=== PATIENT | male | born 1945 | race Caucasian/White ===

== ENCOUNTER 2021-02-14 10:36 | Inpatient (IN) | payer BC, MEDICAID ==
[~2021-02-14] VITALS: Ht 180.3 cm; Wt 113.6 kg
[~2021-02-14 10:36] MED LIST: NO HOME MEDS
[2021-02-14] MEDS ORDERED: cefepime 2g/NS 100ml ADVANTAGE 100 ML IV ONE (12:20)
--- NOTE | 2021-02-14 13:03 | NUR ---
Patient given water to drink.
[2021-02-14 13:08] LABS: BASOPHILS % (AUTO) 0.6 % (0-1); EOSINOPHILS # (AUTO) 0.1 X10'3 (0-0.9); HEMATOCRIT 40.7 % (42.0-52.0); HEMOGLOBIN 14.1 g/dl (14.0-17.9); LYMPHOCYTES # (AUTO) 1.2 X10'3 (1.1-4.8); LYMPHOCYTES % (AUTO) 14.7 % (21-51); MEAN CORPUSCULAR HEMOGLOBIN 33.1 PG (27.0-31.0); MEAN CORPUSCULAR HGB CONC 34.5 g/dL (33.0-36.5); MEAN CORPUSCULAR VOLUME 95.9 FL (78-98); MEAN PLATELET VOLUME 7.9 FL (7.4-10.4); MONOCYTES # (AUTO) 0.6 X10'3 (0-0.9); MONOCYTES % (AUTO) 7.3 % (2-12); NEUTROPHILS # (AUTO) 6.1 X10'3 (1.8-7.7); NEUTROPHILS % (AUTO) 76.4 % (42-75); PLATELET COUNT 421 X10'3 (140-440); RED BLOOD COUNT 4.24 X10'6 (4.70-6.10); RED CELL DISTRIBUTION WIDTH 13.5 % (11.5-14.5)
[2021-02-14 13:23] LABS: ALANINE AMINOTRANSFERASE 43 U/L (12-78); ALBUMIN/GLOBULIN RATIO 0.6 (1.1-1.5); ALKALINE PHOSPHATASE 72 IU/L (46-116); ANION GAP 9 (8-16); ASPARTATE AMINO TRANSFERASE 26 U/L (10-37); BILIRUBIN,TOTAL 0.2 MG/DL (0.1-1.0); BLOOD UREA NITROGEN 16 MG/DL (7-18); BUN/CREATININE RATIO 10.8 (5.4-32.0); C-REACTIVE PROTEIN 1.51 MG/DL (0.0-0.5); CALCIUM 8.6 MG/DL (8.5-10.1); CHLORIDE 102 MMOL/L (99-107); CREATININE 1.48 MG/DL (0.60-1.10); GLUCOSE 112 MG/DL (70-104); MAGNESIUM 2.2 MG/DL (1.5-2.4); POTASSIUM 4.4 MMOL/L (3.5-5.1); SODIUM 136 MMOL/L (135-145); TOTAL CARBON DIOXIDE 25.5 MMOL/L (24-32); TOTAL PROTEIN 8.1 G/DL (6.4-8.2); eGFR 46 ML/MIN
[2021-02-14] MEDS ORDERED: magnesium Cl slow-release 64mg tablet PO PRN (14:30)
[2021-02-14] MEDS ORDERED: ondansetron/PF 4mg/2ml inj IV PRN (14:30)
[2021-02-14] MEDS ORDERED: bisacodyl 10mg suppository rectal RC PRN (14:30)
[2021-02-14] MEDS ORDERED: magnesium 2GM in 50ml NS 50 ML IV PRN (14:30)
[2021-02-14] MEDS ORDERED: ondansetron 4mg rapidly disintigrating tab PO PRN (14:30)
[2021-02-14] MEDS ORDERED: potassium CL 10mEq/100ml bag 100 ML IV PRN (14:30)
[2021-02-14] MEDS ORDERED: acetaminophen 325mg tablet PO PRN ×2 (14:30)
[2021-02-14] MEDS ORDERED: magnesium 4gm in 100ml NS 100 ML IV PRN (14:30)
[2021-02-14] MEDS ORDERED: magnesium hydroxide 30ml (MOM) UD suspension PO PRN (14:30)
[2021-02-14] MEDS ORDERED: mag hydrox/Alum hydrox/simeth 30ml oral suspension PO PRN (14:30)
[2021-02-14] MEDS ORDERED: potassium Cl 20 mEq SR tablet PO PRN ×2 (14:30)
[2021-02-14] MEDS ORDERED: HYDROcodone/acetaminophen 5mg/325mg tablet PO PRN (14:30)
[2021-02-14] MEDS ORDERED: HYDROcodone/acetaminophen 10/325mg tab PO PRN (14:30)
[2021-02-14] MEDS ORDERED: CLIN300C56 PO (14:37)
[2021-02-14] MEDS ORDERED: CLOP75TA34 PO (14:37)
[2021-02-14] MEDS ORDERED: GABA-530 PO (14:37)
[2021-02-14] MEDS ORDERED: CARV3.123 PO (14:37)
[2021-02-14] MEDS ORDERED: POTA-188 PO (14:37)
[2021-02-14] MEDS ORDERED: ASPI-1265 PO (14:37)
[2021-02-14] MEDS ORDERED: OMEP40CA21 PO (14:37)
[2021-02-14] MEDS ORDERED: PANT40TA54 PO (14:37)
[2021-02-14] MEDS ORDERED: FURO20TA4 PO (14:37)
[2021-02-14] MEDS ORDERED: ATOR40TA72 PO (14:37)
[2021-02-14] MEDS ORDERED: ACET-3068 PO (14:57)
[2021-02-14] MEDS ORDERED: vancomycin/NS 1 GM ADD-VANTAGE 250 ML IV SCH (15:00)
--- NOTE | 2021-02-14 15:35 | NUR ---
Report received from ED RN, Khai
[2021-02-14 15:50] VITALS: BP 139/84
[2021-02-14] MEDS: normal saline 1000ml 1,000 ML IV SCH (16:19)
--- NOTE | 2021-02-14 18:10 | NUR ---
Problems reprioritized. Patient report given, questions answered & plan of care reviewed with ZAY Alanis.
[2021-02-14 20:00] VITALS: BP 141/60
[2021-02-14] MEDS: K and/or MAG REPLACEMENT MC SCH (20:00)
[2021-02-14] MEDS ORDERED: enoxaparin 40mg/0.4ml syringe SQ SCH (20:00)
[2021-02-14] MEDS: docusate sod 100mg capsule PO SCH (20:16)
[2021-02-14 20:20] VITALS: BP 119/58
[2021-02-14] MEDS: carVEDilol 3.125mg tablet PO SCH (20:20)
[2021-02-14] MEDS ORDERED: temazepam 15mg capsule PO PRN (21:00)
[2021-02-15] VITALS: BP 145/84
[2021-02-15] MEDS: normal saline 1000ml 1,000 ML IV SCH ×2 (00:30→10:30)
[2021-02-15] MEDS: cefepime 1GM/NS ADD-VANTAGE 100 ML IV SCH ×2 (00:48→10:36)
[2021-02-15] MEDS ORDERED: vancomycin/NS 1 GM ADD-VANTAGE 250 ML IV SCH (01:00)
[2021-02-15 06:05] LABS: BASOPHILS # (AUTO) 0.1 X10'3 (0-0.2); BASOPHILS % (AUTO) 0.9 % (0-1); EOSINOPHILS # (AUTO) 0.2 X10'3 (0-0.9); EOSINOPHILS % (AUTO) 2.2 % (0-6); HEMATOCRIT 37.3 % (42.0-52.0); HEMOGLOBIN 12.7 g/dl (14.0-17.9); LYMPHOCYTES # (AUTO) 1.7 X10'3 (1.1-4.8); LYMPHOCYTES % (AUTO) 24.2 % (21-51); MEAN CORPUSCULAR HEMOGLOBIN 32.5 PG (27.0-31.0); MEAN CORPUSCULAR HGB CONC 33.9 g/dL (33.0-36.5); MEAN CORPUSCULAR VOLUME 95.9 FL (78-98); MEAN PLATELET VOLUME 7.7 FL (7.4-10.4); MONOCYTES # (AUTO) 0.6 X10'3 (0-0.9); NEUTROPHILS # (AUTO) 4.5 X10'3 (1.8-7.7); NEUTROPHILS % (AUTO) 64.7 % (42-75); PLATELET COUNT 338 X10'3 (140-440); RED BLOOD COUNT 3.89 X10'6 (4.70-6.10); RED CELL DISTRIBUTION WIDTH 13.3 % (11.5-14.5)
[2021-02-15 06:12] LABS: ALANINE AMINOTRANSFERASE 33 U/L (12-78); ALBUMIN 2.5 G/DL (3.4-5.0); ALBUMIN/GLOBULIN RATIO 0.5 (1.1-1.5); ALKALINE PHOSPHATASE 61 IU/L (46-116); ANION GAP 6 (8-16); ASPARTATE AMINO TRANSFERASE 22 U/L (10-37); BILIRUBIN,TOTAL 0.2 MG/DL (0.1-1.0); BLOOD UREA NITROGEN 17 MG/DL (7-18); BUN/CREATININE RATIO 12.1 (5.4-32.0); CALCIUM 8.2 MG/DL (8.5-10.1); CHLORIDE 106 MMOL/L (99-107); CREATININE 1.41 MG/DL (0.60-1.10); GLUCOSE 113 MG/DL (70-104); POTASSIUM 4.1 MMOL/L (3.5-5.1); SODIUM 138 MMOL/L (135-145); TOTAL CARBON DIOXIDE 25.9 MMOL/L (24-32); TOTAL PROTEIN 7.1 G/DL (6.4-8.2); eGFR 49 ML/MIN
[2021-02-15 07:00] VITALS: BP 135/78
[2021-02-15] MEDS ORDERED: pantoprazole 40mg Tablet.DR PO SCH (08:00)
[2021-02-15] MEDS ORDERED: aspirin 81mg tab.chew PO SCH (08:00)
[2021-02-15] MEDS ORDERED: gabapentin 100mg capsule PO SCH (08:00)
[2021-02-15] MEDS ORDERED: atorvastatin 20mg tablet PO SCH (08:00)
[2021-02-15] MEDS ORDERED: clopidogrel 75mg tablet PO SCH (08:00)
[2021-02-15] MEDS ORDERED: furosemide 20MG tablet PO SCH (08:00)
[2021-02-15] MEDS ORDERED: potassium chloride 10mEq ER tablet PO SCH (08:00)
[2021-02-15] MEDS: K and/or MAG REPLACEMENT MC SCH (08:00)
[2021-02-15] MEDS: docusate sod 100mg capsule PO SCH (09:34)
[2021-02-15] MEDS: carVEDilol 3.125mg tablet PO SCH (09:34)
[2021-02-15] MEDS ORDERED: SULF1TAB49 PO (10:35)
[2021-02-15] MEDS ORDERED: CEPH250T PO (10:35)
[2021-02-15 11:56] VITALS: BP 124/47
--- NOTE | 2021-02-15 12:30 | NUR ---
Patient stable and appropriate for discharge home. IV removed, All belongings taken from room. New prescriptions e-scripted to [facility] in [place] as preferred by patient. All discharge instructions and education given and reviewed with patient including next due dose time of all new and continued medications. All questions answered. Patient DC'd with wound care supplies.
[2021-02-15] MEDS ORDERED: cefepime 1GM in D5W 50mL 50 ML IV SCH (16:00)
[2021-02-16] MEDS ORDERED: VANCOMYCIN LEVEL IV ONE (00:30)
== END 2021-02-15 12:28 | disposition home health service (06) | DRG 603 ==
LOC: ER 10:37 → SUR 3N 14:29 → ER 16:30
PROVIDERS: ADMIT Family Medicine; ATTEND Family Medicine
DX: L03.116 Cellulitis of left lower limb (principal); E78.5 Hyperlipidemia, unspecified; N18.30 Chronic kidney disease, stage 3 unspecified; K21.9 Gastro-esophageal reflux disease without esophagitis; I12.9 Hypertensive chronic kidney disease with stage 1 through stage 4 chronic kidney disease, or unspecified chronic kidney disease; F17.210 Nicotine dependence, cigarettes, uncomplicated; S90.935A Unspecified superficial injury of left lesser toe(s), initial encounter; X58.XXXA Exposure to other specified factors, initial encounter; I25.2 Old myocardial infarction; Z79.02 Long term (current) use of antithrombotics/antiplatelets; Z79.899 Other long term (current) drug therapy; Z91.14 Patient's other noncompliance with medication regimen; Z91.19 Patient's noncompliance with other medical treatment and regimen; Z82.49 Family history of ischemic heart disease and other diseases of the circulatory system; Z72.89 Other problems related to lifestyle; Y93.89 Activity, other specified; Y92.89 Other specified places as the place of occurrence of the external cause; Y99.8 Other external cause status
CPT/HCPCS: 36415; 73630; 80053; 83605; 83735; 84145; 85025; 85651; 86140; 87040; 87081; 96365; 96366; 97116; 97161; 97530; 99285; G0378; J0692; J1650; J3370; J7030

== ENCOUNTER 2021-11-03 12:11 | Emergency (ER) | payer BC, MEDICAID ==
[~2021-11-03] VITALS: Ht 182.9 cm; Wt 113.6 kg
[~2021-11-03 12:11] MED LIST changes: +ACET-3068 PO; +ASPI-1265 PO; +ATOR40TA72 PO; +CARV3.123 PO; +CEPH250T PO; +CLOP75TA34 PO; +FURO20TA4 PO; +GABA-530 PO; -NO HOME MEDS; +OMEP40CA21 PO; +PANT40TA54 PO; +POTA-188 PO
[2021-11-03 15:10] LABS: BASOPHILS % (AUTO) 0.4 % (0-1); LYMPHOCYTES # (AUTO) 1.2 X10'3 (1.1-4.8); MEAN PLATELET VOLUME 7.9 FL (7.4-10.4); MONOCYTES # (AUTO) 0.7 X10'3 (0-0.9)
[2021-11-03 15:12] LABS: EOSINOPHILS % (AUTO) 0.2 % (0-6); HEMATOCRIT 43.4 % (42.0-52.0); HEMOGLOBIN 14.6 g/dl (14.0-17.9); LYMPHOCYTES % (AUTO) 9.7 % (21-51); MEAN CORPUSCULAR HGB CONC 33.8 g/dL (33.0-36.5); MEAN CORPUSCULAR VOLUME 94.9 FL (78-98); MONOCYTES % (AUTO) 6.1 % (2-12); NEUTROPHILS % (AUTO) 83.6 % (42-75); PLATELET COUNT 305 X10'3 (140-440); RED BLOOD COUNT 4.57 X10'6 (4.70-6.10); RED CELL DISTRIBUTION WIDTH 13.2 % (11.5-14.5)
[2021-11-03 15:25] LABS: ALANINE AMINOTRANSFERASE 19 U/L (12-78); ALBUMIN 3.7 G/DL (3.4-5.0); ALBUMIN/GLOBULIN RATIO 0.8 (1.1-1.5); ALKALINE PHOSPHATASE 94 IU/L (46-116); ANION GAP 8 (8-16); ASPARTATE AMINO TRANSFERASE 16 U/L (10-37); BILIRUBIN,TOTAL 0.3 MG/DL (0.1-1.0); BLOOD UREA NITROGEN 12 MG/DL (7-18); CHLORIDE 102 MMOL/L (99-107); GLUCOSE 113 MG/DL (70-104); LIPASE 77 U/L (73-393); POTASSIUM 4.1 MMOL/L (3.5-5.1); SODIUM 136 MMOL/L (135-145); TOTAL CARBON DIOXIDE 25.9 MMOL/L (24-32); TOTAL PROTEIN 8.2 G/DL (6.4-8.2); eGFR 59 ML/MIN
[2021-11-03] MEDS ORDERED: piperacillin/tazo 3.375gm/50ml 50 ML IV ONE (16:10)
[2021-11-03] MEDS ORDERED: normal saline 1000ML IV soln IVB ONE (16:10)
[2021-11-03] MEDS ORDERED: ondansetron/PF 4mg/2ml inj IV ONE (16:10)
[2021-11-03] MEDS ORDERED: morphine 4 MG/ML inj SYRINge IV ONE (16:10)
[2021-11-03 16:30] LABS: CLARITY,URINE CLEAR (Clear); COLOR,URINE YELLOW (Yellow); GLUCOSE, URINE NEGATIVE (Neg); KETONES,URINE NEGATIVE (Neg); LEUKOCYTE ESTERASE ,URINE NEGATIVE (Neg); NITRITES, URINE NEGATIVE (Neg); OCCULT BLOOD,URINE MODERATE (Neg); PH,URINE 6.5 (4.8-8.0); PROTEIN,URINE NEGATIVE (Neg); UROBILINOGEN,URINE 0.2 E.U/dL (0.2-1.0)
[2021-11-03 16:38] LABS: UA COLLECTION TYPE OTHER
[2021-11-03 16:40] LABS: WBC,URINE 0-4 /HPF (0-4)
[2021-11-03 16:41] LABS: BACTERIA,URINE NONE SEEN /HPF (Neg); MUCUS STRANDS FEW /LPF (Neg); SQUAMOUS EPITHELIAL CELL,UR MODERATE /LPF (FEW)
[2021-11-03] MEDS ORDERED: AMOX-117 PO (18:42)
[2021-11-03 18:54] VITALS: BP 149/73
== END 2021-11-03 19:00 | disposition home or self-care (01) ==
LOC: ER 12:11
DX: K80.20 Calculus of gallbladder without cholecystitis without obstruction (principal); N17.9 Acute kidney failure, unspecified; I11.9 Hypertensive heart disease without heart failure; F17.200 Nicotine dependence, unspecified, uncomplicated; Z79.899 Other long term (current) drug therapy; Z79.1 Long term (current) use of non-steroidal anti-inflammatories (NSAID); Z79.82 Long term (current) use of aspirin
CPT/HCPCS: 36415; 76700; 80053; 80320; 81001; 83605; 83690; 85025; 87040; 96365; 96375; 99284; J2270; J2405; J2543; J7030; 96374

== ENCOUNTER 2022-08-24 13:50 | Emergency (ER) | payer OTHER, MEDICAID ==
[~2022-08-24] VITALS: Ht 177.8 cm; Wt 140.0 kg
[~2022-08-24 13:50] MED LIST changes: -ACET-3068 PO; -ASPI-1265 PO; -ATOR40TA72 PO; -CARV3.123 PO; -CEPH250T PO; +FOLI1TAB27 PO; -FURO20TA4 PO; -GABA-530 PO; +LISI10TA27 PO; +METF-1203 PO; +MULT-25 PO; -OMEP40CA21 PO; -POTA-188 PO; +THIA50TA10 PO
[2022-08-24 14:01] VITALS: BP 156/98
[2022-08-24] MEDS ORDERED: piperacillin/tazo 3.375gm/50ml 50 ML IV ONE (15:00)
== END 2022-08-24 15:58 | disposition home or self-care (01) ==
LOC: ER 13:51
DX: T82.898A Other specified complication of vascular prosthetic devices, implants and grafts, initial encounter (principal); I10 Essential (primary) hypertension; E78.00 Pure hypercholesterolemia, unspecified; Z79.899 Other long term (current) drug therapy
CPT/HCPCS: 96365; 99284; A6258; J2543

== ENCOUNTER 2022-08-29 09:45 | Emergency (ER) | payer OTHER, MEDICAID ==
[~2022-08-29] VITALS: Ht 180.3 cm; Wt 127.3 kg
[2022-08-29 09:48] VITALS: BP 183/87
== END 2022-08-29 12:14 | disposition home or self-care (01) ==
LOC: ER 09:46
DX: T82.9XXA Unspecified complication of cardiac and vascular prosthetic device, implant and graft, initial encounter (principal); E78.00 Pure hypercholesterolemia, unspecified; I12.0 Hypertensive chronic kidney disease with stage 5 chronic kidney disease or end stage renal disease; N18.9 Chronic kidney disease, unspecified
CPT/HCPCS: 99281

== ENCOUNTER → 2022-08-31 | Day surgery (SDC) | payer OTHER, MEDICAID | END | disposition home or self-care (01) | LOC: SSTAY O 10:18 | PROVIDERS: ATTEND Internal Medicine | DX: E11.69 Type 2 diabetes mellitus with other specified complication (principal); M86.9 Osteomyelitis, unspecified; E11.22 Type 2 diabetes mellitus with diabetic chronic kidney disease; I12.9 Hypertensive chronic kidney disease with stage 1 through stage 4 chronic kidney disease, or unspecified chronic kidney disease; N18.9 Chronic kidney disease, unspecified; E78.00 Pure hypercholesterolemia, unspecified; I25.2 Old myocardial infarction; E11.40 Type 2 diabetes mellitus with diabetic neuropathy, unspecified; F17.210 Nicotine dependence, cigarettes, uncomplicated; Z72.89 Other problems related to lifestyle; Z79.01 Long term (current) use of anticoagulants; Z79.82 Long term (current) use of aspirin; Z79.899 Other long term (current) drug therapy; Z79.84 Long term (current) use of oral hypoglycemic drugs; Z82.49 Family history of ischemic heart disease and other diseases of the circulatory system | CPT/HCPCS: 36569; 36573; 76942 ==

== ENCOUNTER 2024-07-17 17:38 | Inpatient (IN) | payer MEDICARE, MEDICAID ==
[~2024-07-17] VITALS: Ht 182.9 cm; Wt 107.7 kg
[~2024-07-17 17:38] MED LIST changes: -METF-1203 PO
[2024-07-17 18:48] LABS: BASOPHILS # (AUTO) 0.1 X10'3 (0-0.2); BASOPHILS % (AUTO) 0.5 % (0-1); EOSINOPHILS # (AUTO) 0.2 X10'3 (0-0.9); EOSINOPHILS % (AUTO) 0.8 % (0-6); HEMATOCRIT 46.5 % (42.0-52.0); HEMOGLOBIN 15.4 g/dl (14.0-17.9); LYMPHOCYTES % (AUTO) 10.5 % (21-51); MEAN CORPUSCULAR HEMOGLOBIN 31.4 PG (27.0-31.0); MEAN CORPUSCULAR HGB CONC 33.2 g/dL (33.0-36.5); MEAN CORPUSCULAR VOLUME 94.6 FL (78-98); MEAN PLATELET VOLUME 9.2 FL (7.4-10.4); MONOCYTES # (AUTO) 1.1 X10'3 (0-0.9); MONOCYTES % (AUTO) 5.7 % (2-12); NEUTROPHILS # (AUTO) 15.6 X10'3 (1.8-7.7); NEUTROPHILS % (AUTO) 82.5 % (42-75); PLATELET COUNT 373 X10'3 (140-440); RED BLOOD COUNT 4.92 X10'6 (4.70-6.10); RED CELL DISTRIBUTION WIDTH 14.3 % (11.5-14.5); WHITE BLOOD COUNT 18.9 X10'3 (4.5-11.0)
[2024-07-17 19:03] LABS: ALANINE AMINOTRANSFERASE 31 U/L (12-78); ALBUMIN 3.9 G/DL (3.4-5.0); ALBUMIN/GLOBULIN RATIO 0.8 (1.1-1.5); ALKALINE PHOSPHATASE 92 IU/L (46-116); AMYLASE 59 U/L (25-115); ANION GAP 11 (8-16); ASPARTATE AMINO TRANSFERASE 25 U/L (10-37); BILIRUBIN,TOTAL 0.4 MG/DL (0.1-1.0); BLOOD UREA NITROGEN 27 MG/DL (7-18); BUN/CREATININE RATIO 13.6 (10.0-20.0); CALCIUM 9.1 MG/DL (8.5-10.1); CHLORIDE 104 MMOL/L (99-107); CREATININE 1.99 MG/DL (0.60-1.10); GLUCOSE 113 MG/DL (70-104); LIPASE 38 U/L (16-77); POTASSIUM 4.3 MMOL/L (3.5-5.1); SODIUM 138 MMOL/L (135-145); TOTAL CARBON DIOXIDE 22.8 MMOL/L (24-32); TOTAL PROTEIN 8.6 G/DL (6.4-8.2); eCRCL 34 ML/MIN; eGFR 33 ML/MIN
--- NOTE | 2024-07-17 19:41 | RADIOLOGY REPORT ---
EXAM: CT Abdomen and Pelvis Without Intravenous Contrast CLINICAL INDICATION: RLQ abd pain TECHNIQUE: Axial computed tomography images of the abdomen and pelvis without intravenous contrast. This CT exam was performed using one or more of the following dose reduction techniques: automated exposure control, adjustment of the mA and/or kV according to patient size, and/or use of iterative r econstruction technique. CONTRAST: COMPARISON: None FINDINGS: LUNG BASES: Unremarkable. No mass. No consolidation. ABDOMEN: LIVER: Unremarkable. GALLBLADDER AND BILE DUCTS: Unremarkable. No calcified stones. No ductal dilation. PANCREAS: Unremarkable. No ductal dilation. SPLEEN: Unremarkable. No splenomegaly. ADRENALS: Unremarkable. No mass. KIDNEYS AND URETERS: Right renal cyst. No obstructing stones. No hydronephrosis. STOMACH AND BOWEL: Constipation with suggestion of fecal impaction of the rectum. Colonic divertic ulosis without acute diverticulitis. PELVIS: APPENDIX: Fat stranding in the right lower abdominal quadrant. Appendix not clearly visualized. F inding may suggest colitis. However, acute appendicitis can not be entirely excluded. No bowel obstr uction or pneumoperitoneum. No abscess. BLADDER: Unremarkable. No stones. REPRODUCTIVE: Unremarkable as visualized. ABDOMEN and PELVIS: INTRAPERITONEAL SPACE: See above. BONES/JOINTS: No acute fracture. No dislocation. SOFT TISSUES: Unremarkable. VASCULATURE: Unremarkable. No abdominal aortic aneurysm. LYMPH NODES: Unremarkable. No enlarged lymph nodes. OTHER FINDINGS: . IMPRESSION: 1. Fat stranding in the right lower abdominal quadrant. Appendix not clearly visualized. Finding m ay suggest colitis. However, acute appendicitis can not be entirely excluded. No bowel obstruction o r pneumoperitoneum. No abscess. 2. Constipation with suggestion of fecal impaction of the rectum. 3. Colonic diverticulosis without acute diverticulitis.
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
--- NOTE | 2024-07-17 20:25 | ELECTROCARDIOGRAPH REPORT ---
[facility] Test Date: 2024-07-17 Test Time: 20:23:02 Pat Name: ЕЛЕНА PATHAK Department: [facility] Patient ID: [facility]-[id number] Room: Gender: M Threat Analyst: : 1945 Requested By: MAUREEN RAE Order Number: [id number] Reading MD: Dr. Gabino Conde Measurements Intervals [place] Rate: 110 P: 53 IN: 158 QRS: 62 QRSD: 94 T: 66 QT: 323 QTc: 438 Interpretive Statements Sinus tachycardia Probable left atrial enlargement Electronically Signed On 07-17-2024 21:43:[address] Gabino Conde Please click the below link to view image of tracing.
--- NOTE | 2024-07-17 21:15 | RADIOLOGY REPORT ---
CHEST RADIOGRAPH Indication: cough Technique: Single frontal view of the chest was obtained COMPARISON: None FINDINGS: Lines and Tubes: None Lungs: Clear Pleura: No effusion. No pneumothorax. Cardiomediastinal contours: Unremarkable Bones: Unremarkable IMPRESSION: 1. No acute disease.
[2024-07-17] MEDS: normal saline 1000ml 1,000 ML IV ONE ×2 (21:28→21:32)
[2024-07-17] MEDS: morphine 4 MG/ML inj SYRINge IV ONE (21:29)
[2024-07-17] MEDS: piperacillin/tazo 4.5gm/100ml 100 ML IV ONE (21:41)
[2024-07-17] MEDS: ondansetron/PF 4mg/2ml inj IV ONE (21:41)
[2024-07-17] MEDS ORDERED: ondansetron/PF 4mg/2ml inj IV PRN (22:00)
[2024-07-17] MEDS ORDERED: potassium Cl 20 mEq SR tablet PO PRN ×2 (22:00)
[2024-07-17] MEDS ORDERED: mag hydrox/Alum hydrox/simeth 30ml oral suspension PO PRN (22:00)
[2024-07-17] MEDS ORDERED: haloperidol lactate 5mg/ml inj IM PRN (22:00)
[2024-07-17] MEDS ORDERED: magnesium sulf-water 2g/50mL 50 ML IV PRN (22:00)
[2024-07-17] MEDS ORDERED: magnesium Cl slow-release 64mg tablet PO PRN (22:00)
[2024-07-17] MEDS ORDERED: magnesium hydroxide 30ml (MOM) UD suspension PO PRN (22:00)
[2024-07-17] MEDS ORDERED: acetaminophen 325mg tablet PO PRN ×2 (22:00)
[2024-07-17] MEDS ORDERED: potassium Cl 40MEQ/1/2NS 520ml 520 ML IV PRN (22:00)
[2024-07-17] MEDS ORDERED: dextrose 50%-water 50ml dispensing syringe IV PRN (22:00)
[2024-07-17] MEDS ORDERED: haloperidol 5mg tablet PO PRN (22:00)
[2024-07-17] MEDS ORDERED: magnesium sulf-water 4G/100mL 100 ML IV PRN (22:00)
[2024-07-17] MEDS ORDERED: LORazepam 2 mg/ml vial IV PRN (22:00)
[2024-07-17] MEDS ORDERED: morphine 2 MG/ML inj. syringe IV PRN (22:00)
[2024-07-17] MEDS ORDERED: ipratropium/albuterol 3ml nebule NEB PRN (22:15)
[2024-07-17 22:25] LABS: INR 1.1 INR; PROTHROMBIN TIME 11.5 SECONDS (9.0-12.0)
[2024-07-17 22:35] LABS: HEMOGLOBIN A1C 5.9 % (4.5-6.2)
[2024-07-17 22:39] LABS: BILIRUBIN,URINE NEGATIVE (Neg); CLARITY,URINE CLEAR (Clear); COLOR,URINE YELLOW (Yellow); GLUCOSE, URINE NEGATIVE (Neg); KETONES,URINE NEGATIVE (Neg); LEUKOCYTE ESTERASE ,URINE NEGATIVE (Neg); OCCULT BLOOD,URINE NEGATIVE (Neg); PROTEIN,URINE TRACE mg/dl (Neg); UROBILINOGEN,URINE 0.2 E.U/dL (0.2-1.0)
[2024-07-17 22:46] LABS: ETHANOL < 10 MG/DL (<10); MAGNESIUM 1.8 MG/DL (1.5-2.4); PHOSPHORUS 2.1 MG/DL (2.3-4.5); PRO BRAIN NATRIURETIC PEPTIDE 306 PG/ML (0-450)
[2024-07-17 22:46] LABS: URINE AMPHETAMINE SCREEN POSITIVE (Neg); URINE BARBITUATE SCREEN NEGATIVE (Neg); URINE BENZODIAZEPINES SCREEN NEGATIVE (Neg); URINE CANNABINOID SCREEN NEGATIVE (Neg); URINE COCAINE SCREEN NEGATIVE (Neg); URINE METHADONE SCREEN NEGATIVE (Neg); URINE OPIATE SCREEN NEGATIVE (Neg); URINE PHENCYCLIDINE SCREEN NEGATIVE (Neg)
[2024-07-17] MEDS ORDERED: METF-1203 PO (22:53)
[2024-07-17] MEDS ORDERED: LEVO25TA7 PO (22:53)
[2024-07-17] MEDS ORDERED: TIRZ5PEN (22:53)
[2024-07-17] MEDS ORDERED: ATOR40TA72 PO (22:53)
[2024-07-17] MEDS ORDERED: CLOP75TA34 PO (22:54)
[2024-07-17] MEDS ORDERED: FOLI0.4T6 PO (22:55)
[2024-07-17] MEDS ORDERED: LISI20TA28 PO (22:56)
[2024-07-17 23:00] LABS: NITRITES, URINE NEGATIVE (Neg); UA COLLECTION TYPE CLN CATCH MIDSTREAM
[2024-07-17 23:01] LABS: BACTERIA,URINE NONE SEEN /HPF (Neg); RBC,URINE 0-2 /HPF (0-2); SQUAMOUS EPITHELIAL CELL,UR FEW /LPF (FEW); WBC,URINE NONE SEEN /HPF (0-4)
[2024-07-17 23:02] LABS: FINE GRANULAR CAST 0-3 /LPF (NEGATIVE)
[2024-07-17] MEDS: ipratropium/albuterol 3ml nebule NEB SCH (23:03)
[2024-07-17 23:06] VITALS: PULSE 108; RESP 18; O2SAT 93
[2024-07-17 23:08] VITALS: PULSE 107; RESP 18
[2024-07-17] MEDS: folic acid 1mg/0.2ml inj IV SCH (23:27)
[2024-07-17] MEDS: folic acid 1mg/0.2ml inj IV ONE (23:27)
[2024-07-18] VITALS (31 sets, daily range): BP systolic 130–168; BP diastolic 54–89; PULSE 58–96; RESP 14–39; TEMP 97.3–100.7; O2SAT 92–97
[2024-07-18] MEDS: diatr meglu/diatrizoate 30ml oral sol.-(3 dose) bottle PO SCH (00:51)
[2024-07-18] MEDS: normal saline 1000ml 1,000 ML IV SCH (01:18)
[2024-07-18] MEDS: normal saline 1000ML IV soln IVB ONE (01:18)
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
[2024-07-18] MEDS: piperacillin/tazo 4.5gm/100ml 100 ML IV SCH (04:01)
[2024-07-18] MEDS: piperacillin/tazo 4.5gm/100ml 100 ML IV ONE (04:02)
[2024-07-18 04:41] LABS: BASOPHILS % (AUTO) 0.2 % (0-1); EOSINOPHILS % (AUTO) 0 % (0-6); HEMATOCRIT 41.6 % (42.0-52.0); HEMOGLOBIN 13.5 g/dl (14.0-17.9); LYMPHOCYTES # (AUTO) 1.4 X10'3 (1.1-4.8); LYMPHOCYTES % (AUTO) 6.5 % (21-51); MEAN CORPUSCULAR HEMOGLOBIN 30.7 PG (27.0-31.0); MEAN CORPUSCULAR HGB CONC 32.5 g/dL (33.0-36.5); MEAN CORPUSCULAR VOLUME 94.5 FL (78-98); MEAN PLATELET VOLUME 8.6 FL (7.4-10.4); MONOCYTES # (AUTO) 1.1 X10'3 (0-0.9); MONOCYTES % (AUTO) 5.3 % (2-12); NEUTROPHILS # (AUTO) 19.2 X10'3 (1.8-7.7); PLATELET COUNT 285 X10'3 (140-440); RED CELL DISTRIBUTION WIDTH 14.3 % (11.5-14.5); WHITE BLOOD COUNT 21.8 X10'3 (4.5-11.0)
[2024-07-18 05:09] LABS: ALANINE AMINOTRANSFERASE 23 U/L (12-78); ALBUMIN 2.9 G/DL (3.4-5.0); ALBUMIN/GLOBULIN RATIO 0.7 (1.1-1.5); ALKALINE PHOSPHATASE 70 IU/L (46-116); ANION GAP 8 (8-16); ASPARTATE AMINO TRANSFERASE 18 U/L (10-37); BILIRUBIN,TOTAL 0.9 MG/DL (0.1-1.0); BLOOD UREA NITROGEN 28 MG/DL (7-18); BUN/CREATININE RATIO 13.2 (10.0-20.0); CALCIUM 8.4 MG/DL (8.5-10.1); CHLORIDE 108 MMOL/L (99-107); CHOL/HDL RATIO 2.6 (0.00-4.99); CHOLESTEROL 116 MG/DL (0-200); CREATININE 2.12 MG/DL (0.60-1.10); GLUCOSE 112 MG/DL (70-104); HDL CHOLESTEROL 44 MG/DL (35-60); LDL CHOLESTEROL 64 MG/DL (50-100); MAGNESIUM 1.8 MG/DL (1.5-2.4); PHOSPHORUS 2.8 MG/DL (2.3-4.5); POTASSIUM 5.1 MMOL/L (3.5-5.1); SODIUM 140 MMOL/L (135-145); THYROID STIMULATING HORMONE 1.91 ulU/ml (0.34-4.50); TOTAL CARBON DIOXIDE 23.8 MMOL/L (24-32); TOTAL PROTEIN 6.8 G/DL (6.4-8.2); TRIGLYCERIDES 58 MG/DL (20-135); eCRCL 32 ML/MIN; eGFR 30 ML/MIN
[2024-07-18] MEDS ORDERED: iohexol 300mg/ml 100ml inj. ONE (07:37)
[2024-07-18] MEDS: atorvastatin 20mg tablet PO SCH (07:40)
[2024-07-18] MEDS: docusate sod 100mg capsule PO SCH (07:41)
[2024-07-18] MEDS: levoTHYROXINE 25mcg tablet PO SCH (07:41)
[2024-07-18] MEDS: thiamine 100mg/ml 2ml inj. IV SCH (07:41)
[2024-07-18] MEDS: pantoprazole 40 MG vial IV SCH (07:42)
[2024-07-18] MEDS: nicotine 21mg patch - 24 hr TD SCH (07:43)
[2024-07-18] MEDS: heparin, porcine 5000 units/ml vial SQ SCH (08:00)
[2024-07-18] MEDS: metFORMIN 500mg tablet PO SCH (08:00)
[2024-07-18] MEDS: K and/or MAG REPLACEMENT MC SCH (08:00)
--- NOTE | 2024-07-18 09:55 | PROGRESS NOTE ---
Progress Note Dictate Providers to CC CC: DANII FORTE MD ~ Progress Note: Patient presents with right lower quadrant abdominal pain for a couple of days. No other symptoms. Denies any fevers, chills, nausea, vomiting, diarrhea or black or bloody stool Denies any history of colonoscopy Heavy smoker for his entire life CT scan shows some inflammatory process in the right lower quadrant and appendix not visualized per radiologist I can see what appears to be a normal caliber appendix with some inflammatory changes Local[facility] the [facility] Awaiting repeat CT scan with enteral and IV contrast Broad-spectrum antibiotics until then Either myself or Dr. Heriberto Shea we will see the patient this afternoon once imaging obtained Antibiotic Ordered?: Yes Objective Vitals Vital Signs Date Time Temp Pulse Resp B/P (MAP) Pulse Ox O2 Delivery O2 Flow Rate FiO2 07/18/24 08:00 16 95 Nasal Cannula 2.0 07/18/24 06:00 100.7 95 133/57 (82) 07/17/24 23:06 28 Lab Results: 07/18/24 0430 07/18/24 0430 Coagulation Studies Laboratory Tests Test 07/17/24 17:55 Prothrombin Time 11.5 SECONDS (9.0-12.0) INR International Normalized Ratio 1.1 INR Coagulation Comments DANII FORTE MD July 18, 2024 09:55
[2024-07-18] MEDS: morphine 2 MG/ML inj. syringe IV PRN (11:07)
--- NOTE | 2024-07-18 11:31 | RADIOLOGY REPORT ---
CLINICAL INFORMATION: Right lower quadrant pain. TECHNIQUE: Axial CT images of the abdomen and pelvis were obtained after the uneventful administrati on of 100 mL Omnipaque 300 IV contrast. Coronal and sagittal reformatted images were obtained, review ed, and stored. All CT scans at this medical facility are performed using dose modulation techniques as appropriate to a performed exam including the following: Automated exposure control was utilized; adjustment of the MA and/or KV according to patient size; and use of iterative reconstruction techn[employer] ue. CTDIvol = 37.02 mGy DLP = 2099.04 mGy-cm COMPARISON: CT CT ABDOMEN PELVIS on DOS: 07/17/24 FINDINGS: Lung bases: Dependent atelectasis in the lung bases. Respiratory motion artifact limits evaluation fo r subtle findings. Liver: Hepatic steatosis. Biliary: Gallbladder is contracted. No definite calcified gallstones visualized. Spleen: Unremarkable. Pancreas: Unremarkable. No inflammatory changes, ductal dilatation, or mass identified. Adrenal glands: Unremarkable. No mass. Kidneys: 2.6 cm cyst in the upper pole of the right kidney. No hydronephrosis. Aorta/Vascular: Dense atherosclerotic calcification. No abdominal aortic aneurysm. Retroperitoneum: No mass or lymphadenopathy. Bowel/mesentery: Mildly distended fluid-filled small bowel loops. There is somewhat gradual narrowing of the distal small bowel without focal transition point identified to suggest small bowel obstructi on. Appendix is visualized measures up to 1.2 cm in diameter, most prominent near the base of the nik endix, with mild adjacent stranding and trace fluid, possible appendicitis in the appropriate clinica l setting. Scattered small colonic diverticula without adjacent inflammatory changes to suggest diver ticulitis. Pelvic organs: Grossly unremarkable. Bladder: Moderate circumferential thickening of the bladder wall. Abdominal wall: Small bilateral fat containing inguinal hernias. Bones: No acute fracture or focal intraosseous lesion. IMPRESSION: 1. Thickened appendix, most prominent near the base of the appendix with adjacent stranding and trace fluid, suspected acute appendicitis in the appropriate clinical setting. 2. Dilated fluid-filled small bowel loops with somewhat gradual transition to nondilated distal small bowel, likely due to ileus or enteritis in the appropriate clinical setting. 3. Hepatic steatosis. 4. Contracted gallbladder with no definite calcified gallstones visualized. 5. Moderate circumferential thickening of the bladder wall. Correlate clinically to exclude cystitis . 6. Additional findings as described above. Critical findings Critical Result: Suspected acute appendicitis. Findings discussed with Dr. Tarango at 07/18/2024 01:26 PM CDT, and acknowledged receipt and understan ding of the findings. ..
[2024-07-18] MEDS ORDERED: BUPIVAcaine 2.5mg/ml inj 50ml vial (contains preservative) ONE (12:48)
[2024-07-18] MEDS ORDERED: labetalol 20mg/4ml (5mg/ml) syringe IV PRN (13:05)
[2024-07-18] MEDS ORDERED: fentaNYL/PF 50MCG/1 ML 2ML syringe IV PRN ×2 (13:05)
[2024-07-18] MEDS ORDERED: enalaprilat 1.25mg/ml 2ml vial IV PRN (13:05)
[2024-07-18] MEDS: ringers solution, lacted 1,000 ML IV SCH (13:05)
[2024-07-18] MEDS ORDERED: morphine 2 MG/ML inj. syringe IV PRN (13:05)
[2024-07-18] MEDS ORDERED: ondansetron/PF 4mg/2ml inj IV PRN ×2 (13:05→15:10)
[2024-07-18] MEDS ORDERED: morphine 4 MG/ML inj SYRINge IV PRN (13:05)
--- NOTE | 2024-07-18 13:20 | PROGRESS NOTE ---
Progress Note ID Providers to CC ~ Progress Note Progress Note: discussed procedure including risks/benefits/alernatives SIRIA FLORES MD July 18, 2024 13:20
[2024-07-18] MEDS ORDERED: fentaNYL/PF 50MCG/1 ML 2ML syringe ONE ×2 (13:27→14:22)
[2024-07-18] MEDS ORDERED: midazolam 1 mg/ML 2ml injection ONE (13:28)
[2024-07-18] MEDS ORDERED: acetaminophen 1,000mg/100ml IV 100 ML IV ONE (13:28)
[2024-07-18] MEDS ORDERED: ondansetron/PF 4mg/2ml inj ONE (13:29)
[2024-07-18] MEDS ORDERED: rocuronium 10mg/ml inj IV ONE (13:29)
[2024-07-18] MEDS ORDERED: propofol inj 20 ML IV ONE (13:29)
[2024-07-18] MEDS ORDERED: dexamethasone sod phosphate 4mg/ml inj. ONE (13:29)
[2024-07-18] MEDS ORDERED: LIDOcaine 1%/PF 5ML 10 MG/ML VIAL ONE (13:29)
[2024-07-18] MEDS ORDERED: sevoflurane 250ml liquid IH ONE (13:30)
[2024-07-18] MEDS: ipratropium/albuterol 3ml nebule IH ONE (13:33)
[2024-07-18] MEDS ORDERED: albumin (Human) 5% 250ml 250 ML IV ONE (14:09)
[2024-07-18] MEDS ORDERED: sugammadex 200mg/2ml injection IV ONE (14:59)
--- NOTE | 2024-07-18 15:08 | OPERATIVE REPORT ---
Operative Report Providers to CC ~ Date of Procedure: July 18, 2024 Pre-Operative Diagnosis: Acute appendicitis Post-Operative Diagnosis SAME as PRE-Op Procedure Performed celine potter Surgeon: rosalva mcneil Anesthesiologist: Oskar Che Type of Anesthesia: General Findings: appendicitis Estimated Blood Loss: min Specimen Removed: SIRIA Tristan MD July 18, 2024 15:08
[2024-07-18] MEDS ORDERED: HYDROmorphone inj. 0.5 MG/0.5 ML DISP.SYRIN IV PRN (15:10)
[2024-07-18] MEDS ORDERED: naloxone 0.4 mg/ml inj IV PRN (15:10)
[2024-07-18] MEDS: albuterol 2.5 MG/3 ML nebule NEB ONE (15:47)
--- NOTE | 2024-07-18 17:36 | OPERATIVE REPORT ---
DATE OF SURGERY: 07/18/2024 DICTATING PHYSICIAN: Heriberto Shea MD PREOPERATIVE DIAGNOSIS: Appendicitis. POSTOPERATIVE DIAGNOSIS: Appendicitis. PROCEDURE PERFORMED: Robotic appendectomy. SURGEON: Heriberto Shea MD HAM PUMPER: None. ANESTHESIA: General/Dr. Gomez. DRAINS: Iftikhar drain x 1. INDICATIONS FOR OPERATION: A 79-year-old male with medical problems, left abdominal pain, acute appendicitis, taken to surgery for robotic appendectomy. INTRAOPERATIVE FINDINGS: Acute appendicitis. DESCRIPTION OF PROCEDURE: The patient was placed supine on the operating table. After induction of general anesthesia and placement of endotracheal tube, the abdomen was prepped and draped. A supraumbilical incision was then made and a #12 port placed using open technique. Pneumoperitoneum was begun by insufflation of CO2. Additional ports were placed in the left lower quadrant and right lateral abdomen. Robot was then brought to the field. Camera port was docked. Camera placed, camera targeted. Additional ports were then docked and instruments placed. Abdomen was then explored. ____ right lower quadrant. Small bowel was mobilized. Cecum identified and appendix had been visualized. The appendiceal cecal junction was identified, isolated, ligated with Endo-DOMINIC stapler and divided as well as was appendiceal mesentery. Hemostasis found to be adequate. Robotic instruments were removed. Robot was undocked from the field. Appendix was placed in Endobag using laparoscope. Abdomen was copiously irrigated with large amount of antibiotic-containing solution. A #19 Iftikhar drain was placed through a port incision directly in the right upper quadrant. Hemostasis was found to be adequate. Ports were then removed under laparoscopic vision with no evidence of active bleeding. Final port and ____ appendix removed. Pneumoperitoneum was evacuated. Wounds were closed in layers. Skin was closed with clips. Dressing was applied. The patient was transferred to recovery in stable condition. Heriberto Shea MD TID: [id number] RECEIPT: [id number] BOLIVAR/DORIS/CANDE
--- NOTE | 2024-07-18 18:35 | PROGRESS NOTE- Residence ---
Progress Note - Resident Providers to CC Resident Creating Document: JASIEL TARANGO RES ~ Antibiotic Timeout Antibiotic Ordered?: Yes Subjective Patient was seen and examined at bedside. I found him to be confused with time person and place. However, he was still complaining of right lower quadrant pain. Noncontrast abdominal ultrasound was equivocal, followed by CT abdomen with oral and IV contrast which highly suggested acute appendicitis. Findings shared with Dr. Garcia, patient undergone robotic appendectomy by Dr. Shea. Objective Vital Signs Date Time Temp Pulse Resp B/P (MAP) Pulse Ox O2 Delivery O2 Flow Rate FiO2 07/18/24 17:58 90 18 159/89 (112) 95 Nasal Cannula 3.0 07/18/24 16:45 98.2 07/18/24 15:48 51 Elderly male, alert and oriented, appears to be in acute distress because of abdominal pain Respiratory: Mild diffuse wheezing heard Cardiac: S1-S2 heard, rhythm regular, no gallop/murmur Abdomen: non distended, obese, mild umbilical and right lower quadrant tenderness present, no organomegaly, bowel sounds - heard Extremities: no clubbing, no pedal edema, no deformities, peripheral pulses - 2+ Skin: warm and dry, no rash, no purpura Neuro: Confused and disoriented Result Diagram: 07/18/24 0430 07/18/24 0430 Coagulation Studies Laboratory Tests Test 07/17/24 17:55 Prothrombin Time 11.5 SECONDS (9.0-12.0) INR International Normalized Ratio 1.1 INR Coagulation Comments Advance Care Planning Advanced Care plannin - 30 Minutes Assessment Assessment A 79-year-old male with past medical history of hypertension, diabetes, CKD, PAD, presented to the ED with complaints of right lower quadrant abdominal pain. He is being admitted into the hospital for further evaluation and management. Plan Plan Right lower quadrant abdominal pain Acute appendicitis, evidenced by CT abdomen with oral contrast Sepsis present on admission, source appendicitis Lactic acid trended down; 2.0 now Continue IV fluids at 150 mL/hour. Patient received one dose of IV Zosyn in the ER. Continue IV Zosyn 4.5 g thrice daily. Undergone robotic appendectomy today - diet per surgeon Metabolic encephalopathy: Most likely due to ongoing infectious process Patient is disoriented x3 Treating underlying etiologies Keep him under telemetry CKD stage III Creatinine 2.12, EGFR 3o, BUN 28. Exposed to oral and IV contrast, creatinine expected to rise Aggressive IV hydration, continue NS at 50 mL/hour Monitor BMP Hypertension Patient has soft blood pressures currently. Holding his home lisinopril for now. Diabetes mellitus HB A1c 5.9. Hyperlipidemia Continue atorvastatin 40 mg daily. PAD Plavix held for potential surgery. Hypothyroidism Continue levothyroxine 25 mcg daily. Substance use disorder: UDS positive for methamphetamine Substance use navigator consult Social service consult Alcohol use disorder Started the patient on moderate alcohol withdrawal protocol. Nicotine use disorder Nicotine patch 21 mg daily. Code Status: Full code DVT Prophylaxis: Heparin Analgesia/Sedation: Acetaminophen Lines/Tubes: PIV GI Prophylaxis: Protonix Nutrition: NPO after midnight PT: Ordered Jasiel Tarango Internal Medicine Resident Date of Service: July 18, 2024 Billing Provider: KATI WILLIAM MD,JASIEL, RES July 18, 2024 18:35
[2024-07-19 02:00] VITALS: BP 147/70; PULSE 80; RESP 20; TEMP 98.2; O2SAT 95
[2024-07-19 06:00] VITALS: BP 133/54; PULSE 82; RESP 18; TEMP 97.2; O2SAT 94
[2024-07-19 06:53] LABS: BASOPHILS % (AUTO) 0.1 % (0-1); EOSINOPHILS % (AUTO) 0 % (0-6); HEMATOCRIT 39.7 % (42.0-52.0); HEMOGLOBIN 12.9 g/dl (14.0-17.9); LYMPHOCYTES # (AUTO) 0.6 X10'3 (1.1-4.8); LYMPHOCYTES % (AUTO) 3.1 % (21-51); MEAN CORPUSCULAR HEMOGLOBIN 31.1 PG (27.0-31.0); MEAN CORPUSCULAR HGB CONC 32.6 g/dL (33.0-36.5); MEAN CORPUSCULAR VOLUME 95.5 FL (78-98); MEAN PLATELET VOLUME 8.7 FL (7.4-10.4); MONOCYTES # (AUTO) 0.5 X10'3 (0-0.9); MONOCYTES % (AUTO) 2.6 % (2-12); NEUTROPHILS # (AUTO) 19.4 X10'3 (1.8-7.7); NEUTROPHILS % (AUTO) 94.2 % (42-75); PLATELET COUNT 213 X10'3 (140-440); RED BLOOD COUNT 4.15 X10'6 (4.70-6.10); RED CELL DISTRIBUTION WIDTH 14.4 % (11.5-14.5); WHITE BLOOD COUNT 20.6 X10'3 (4.5-11.0)
[2024-07-19 07:24] LABS: ALANINE AMINOTRANSFERASE 19 U/L (12-78); ALBUMIN 2.7 G/DL (3.4-5.0); ALBUMIN/GLOBULIN RATIO 0.7 (1.1-1.5); ALKALINE PHOSPHATASE 62 IU/L (46-116); ANION GAP 9 (8-16); ASPARTATE AMINO TRANSFERASE 20 U/L (10-37); BILIRUBIN,TOTAL 0.5 MG/DL (0.1-1.0); BLOOD UREA NITROGEN 21 MG/DL (7-18); BUN/CREATININE RATIO 11.4 (10.0-20.0); CALCIUM 8.4 MG/DL (8.5-10.1); CHLORIDE 108 MMOL/L (99-107); CREATININE 1.85 MG/DL (0.60-1.10); GLUCOSE 129 MG/DL (70-104); MAGNESIUM 2.1 MG/DL (1.5-2.4); POTASSIUM 4.7 MMOL/L (3.5-5.1); SODIUM 138 MMOL/L (135-145); TOTAL CARBON DIOXIDE 21.4 MMOL/L (24-32); TOTAL PROTEIN 6.8 G/DL (6.4-8.2); eCRCL 36 ML/MIN; eGFR 36 ML/MIN
[2024-07-19 08:45] VITALS: RESP 18; O2SAT 94
[2024-07-19 10:00] VITALS: BP 148/65; PULSE 84; RESP 18; TEMP 98.4; O2SAT 93
[2024-07-19] MEDS: HYDROcodone/acetaminophen 5mg/325mg tablet PO PRN (13:26)
--- NOTE | 2024-07-19 14:05 | PROGRESS NOTE- Residence ---
Progress Note - Resident Providers to CC Resident Creating Document: JASIEL TARANGO RES ~ Antibiotic Timeout Antibiotic Ordered?: Yes Subjective Patient was seen and examined at bedside. He underwent laparoscopic appendectomy yesterday, POD 1. He is feeling better, reports mild abdominal pain at surgical sites. No BM yet, able to pass gas. His confusion resolved. Objective Vital Signs Date Time Temp Pulse Resp B/P (MAP) Pulse Ox O2 Delivery O2 Flow Rate FiO2 07/19/24 10:00 98.4 84 18 148/65 (92) 93 Nasal Cannula 07/19/24 02:00 3.0 07/18/24 22:00 32 Elderly male, alert and oriented, appears to be in acute distress because of abdominal pain Respiratory: Mild diffuse wheezing heard Cardiac: S1-S2 heard, rhythm regular, no gallop/murmur Abdomen: non distended, obese, bowel sounds sluggish, dressing applied on surgical sites; dry and clean, no leakage or discharge Extremities: no clubbing, no pedal edema, no deformities, peripheral pulses - 2+ Skin: warm and dry, no rash, no purpura Neuro: Confused and disoriented Result Diagram: 07/19/24 0634 07/19/24 0634 Coagulation Studies Laboratory Tests Test 07/17/24 17:55 Prothrombin Time 11.5 SECONDS (9.0-12.0) INR International Normalized Ratio 1.1 INR Coagulation Comments Advance Care Planning Advanced Care plannin - 30 Minutes Assessment Assessment A 79-year-old male with past medical history of hypertension, diabetes, CKD, PAD, presented to the ED with complaints of right lower quadrant abdominal pain. He is being admitted into the hospital for further evaluation and management. Plan Plan Right lower quadrant abdominal pain Acute appendicitis, evidenced by CT abdomen with oral contrast Sepsis present on admission, source appendicitis Peritonitis ruled out Continue IV fluids at 150 mL/hour. Continue IV Zosyn 4.5 g thrice daily. Undergone robotic appendectomy today - POD#1 Dr. Shea follows the patient Metabolic encephalopathy: Resolved Most likely due to ongoing infectious process Patient is disoriented x3 Treating underlying etiologies Keep him under telemetry MONTY on CKD stage III: likely 2/2 renal tubular stasis Creatinine 1.87 improving IV hydration, continue NS at 50 mL/hour Monitor BMP Hypertension Patient has soft blood pressures currently. Holding his home lisinopril for now. Diabetes mellitus HB A1c 5.9. Hyperlipidemia Continue atorvastatin 40 mg daily. PAD Plavix held for potential surgery. Hypothyroidism Continue levothyroxine 25 mcg daily. Substance use disorder: UDS positive for methamphetamine Substance use navigator consult Social service consult Alcohol use disorder Started the patient on moderate alcohol withdrawal protocol. Nicotine use disorder Nicotine patch 21 mg daily. Code Status: Full code DVT Prophylaxis: Heparin Analgesia/Sedation: Acetaminophen Lines/Tubes: PIV GI Prophylaxis: Protonix Nutrition: NPO after midnight PT: Ordered Jasiel Tarango Internal Medicine Resident Date of Service: July 19, 2024 Billing Provider: KATI WILLIAM MD,JASIEL, RES July 19, 2024 14:05
--- NOTE | 2024-07-19 14:18 | PROGRESS NOTE ---
Progress Note ID Providers to CC ~ Progress Note Progress Note: persistent pain/vss/abd-drain output noted/labs noted a/p 1. s/p appy-slow progress/cont antibx-pt SIRIA FLORES MD July 19, 2024 14:17
[2024-07-19 18:00] VITALS: BP 160/67; RESP 20; TEMP 98.1; O2SAT 95
[2024-07-19] MEDS: nystatin 15 GM powder TP SCH (20:25)
[2024-07-19 22:00] VITALS: BP 166/65; PULSE 89; RESP 20; TEMP 98.9; O2SAT 96
[2024-07-19] MEDS ORDERED: LORazepam 1 MG tablet PO PRN (22:00)
[2024-07-19] MEDS ORDERED: LORazepam 2 mg/ml vial IV PRN (22:00)
--- NOTE | 2024-07-20 00:04 | CONSULTATION ---
DATE OF CONSULTATION: 07/18/2024 DICTATING PHYSICIAN: Heriberto Shea MD REASON FOR CONSULTATION: Evaluation of abdominal pain. HISTORY OF PRESENT ILLNESS: The patient is a 79-year-old male with multiple medical problems including abdominal discomfort. CAT scan raised the question of appendicitis. Followup scan presence of appendicitis. Surgical evaluation is now requested. On further questioning, the patient complained of right lower quadrant abdominal pain. The pain persists for the last 1-2 days. He had some nausea. No vomiting. No blood per rectum. PAST MEDICAL HISTORY: Hypertension, diabetes, hyperlipidemia, coronary artery disease and PAD. PAST SURGICAL HISTORY: Angioplasty. HOME MEDICATIONS: Lisinopril, folic acid, Plavix, atorvastatin, Mounjaro, metformin and levothyroxine. ALLERGIES: None. SOCIAL HISTORY: Ongoing cigar use, ongoing alcohol use. REVIEW OF SYSTEMS: See H and P. PHYSICAL EXAMINATION: GENERAL: The patient is a well-nourished male, in no acute distress. VITAL SIGNS: Unremarkable. HEART: Regular rate and rhythm. LUNGS: Clear to auscultation. ABDOMEN: Shows right lower quadrant tenderness. EXTREMITIES: Unremarkable. NEUROLOGIC: Nonfocal. LABORATORY DATA: Labs included WBC of 21, hematocrit of 41, platelet count is 285. Chemistries: BUN and creatinine 28 and 2.12. LFTs are unremarkable. IMAGING STUDIES: CAT scan reveals evidence of acute appendicitis. IMPRESSION: * Acute appendicitis. * Coronary artery disease. * Hypertension. * Hyperlipidemia. * PAD. * Diabetes. PLAN: * IV antibiotics. * Robotic appendectomy. Heriberto Shea MD TID: [id number] RECEIPT: [id number] KB/PAR/AMA
[2024-07-20] MEDS: HYDROcodone/acetaminophen 10/325mg tab PO PRN (05:27)
[2024-07-20 06:00] VITALS: BP 172/75; PULSE 81; RESP 20; TEMP 98.6; O2SAT 94
[2024-07-20 06:23] LABS: BASOPHILS % (AUTO) 0.2 % (0-1); EOSINOPHILS % (AUTO) 0.2 % (0-6); HEMATOCRIT 39.1 % (42.0-52.0); HEMOGLOBIN 13.1 g/dl (14.0-17.9); LYMPHOCYTES # (AUTO) 1.2 X10'3 (1.1-4.8); MEAN CORPUSCULAR HEMOGLOBIN 31.2 PG (27.0-31.0); MEAN CORPUSCULAR HGB CONC 33.5 g/dL (33.0-36.5); MEAN PLATELET VOLUME 9.1 FL (7.4-10.4); MONOCYTES # (AUTO) 0.9 X10'3 (0-0.9); MONOCYTES % (AUTO) 6.3 % (2-12); NEUTROPHILS # (AUTO) 12.4 X10'3 (1.8-7.7); NEUTROPHILS % (AUTO) 85.3 % (42-75); PLATELET COUNT 286 X10'3 (140-440); RED CELL DISTRIBUTION WIDTH 14.3 % (11.5-14.5); WHITE BLOOD COUNT 14.5 X10'3 (4.5-11.0)
[2024-07-20 06:25] LABS: ALANINE AMINOTRANSFERASE 18 U/L (12-78); ALBUMIN 2.6 G/DL (3.4-5.0); ALBUMIN/GLOBULIN RATIO 0.6 (1.1-1.5); ALKALINE PHOSPHATASE 67 IU/L (46-116); ANION GAP 9 (8-16); ASPARTATE AMINO TRANSFERASE 17 U/L (10-37); BILIRUBIN,TOTAL 0.4 MG/DL (0.1-1.0); BLOOD UREA NITROGEN 19 MG/DL (7-18); BUN/CREATININE RATIO 11.4 (10.0-20.0); CALCIUM 8.3 MG/DL (8.5-10.1); CHLORIDE 108 MMOL/L (99-107); CREATININE 1.67 MG/DL (0.60-1.10); GLUCOSE 98 MG/DL (70-104); MAGNESIUM 1.9 MG/DL (1.5-2.4); PHOSPHORUS 2.1 MG/DL (2.3-4.5); SODIUM 142 MMOL/L (135-145); TOTAL CARBON DIOXIDE 25.1 MMOL/L (24-32); TOTAL PROTEIN 6.8 G/DL (6.4-8.2); eCRCL 40 ML/MIN; eGFR 40 ML/MIN
[2024-07-20 08:00] VITALS: RESP 18; O2SAT 94
[2024-07-20 10:00] VITALS: BP 117/44; PULSE 79; RESP 20; TEMP 98.3; O2SAT 94
[2024-07-20 10:59] VITALS: RESP 16
[2024-07-20] MEDS ORDERED: AMOX-580 PO (12:44)
[2024-07-20] MEDS ORDERED: METF-1203 PO (12:48)
[2024-07-20] MEDS ORDERED: CLOP75TA34 PO (12:48)
[2024-07-20] MEDS ORDERED: ATOR40TA72 PO (12:48)
[2024-07-20] MEDS ORDERED: LEVO25TA7 PO (12:48)
[2024-07-20] MEDS ORDERED: LISI20TA28 PO (12:48)
[2024-07-20] MEDS ORDERED: ACET650T58 PO (12:50)
--- NOTE | 2024-07-20 13:44 | DISCHARGE SUMMARY-Residence ---
Discharge Summary Providers to CC Resident Creating Document: JASIEL CASAS, SERGIO ~ Discharge Summary Admission Diagnosis: Acute appendicitis Hospital Course DATE OF ADMISSION: JULY 17, 2024 DATE OF DISCHARGE: JULY 20, 2024 Discharge Diagnosis\Comment: Acute appendicitis, S/P laparoscopic appendectomy Sepsis present on admission Metabolic encephalopathy: Resolved MONTY on CKD stage III: likely 2/2 renal tubular stasis Hypertension Diabetes mellitus; A1c 5.9 Hyperlipidemia PID Hypothyroidism Substance use disorder - UDS positive for methamphetamine Alcohol use disorder Nicotine use disorder Operations\Procedures: Laparoscopic appendectomy Consultants: Dr. Shea Complications: none Condition on DC: Stable New Medications: Acetaminophen (Acetaminophen 8 Hour) 650 Mg Tablet.sa 1 TAB PO Q8H for 7 Days, #21 TAB Amox Tr/Potassium Clavulanate 875/125 MG (Augmentin 875/125 MG) 875 Mg-125 Mg Tablet 1 TAB PO BID, #14 TAB Changed Medications: Lisinopril (Lisinopril) 20 Mg Tablet 10 TAB PO DAILY for 30 Days, #30 TAB (Changed from: 0.5 TAB) Continued Medications: Atorvastatin Calcium (Atorvastatin Calcium) 40 Mg Tablet 1 TAB PO DAILY for 30 Days, #30 TAB (This prescription has been renewed) Clopidogrel Bisulfate (Clopidogrel) 75 Mg Tablet 1 TAB PO DAILY for 30 Days, #30 TAB 0 Refills (This prescription has been renewed) Do not stop medication unless instructed by prescriber. Folic Acid* (Folic Acid*) 0.4 Mg Tablet 2.5 TAB PO DAILY for 30 Days, #30 TAB Levothyroxine Sodium (Levothyroxine Sodium) 25 Mcg Tablet 1 TAB PO DAILY for 30 Days, #30 TAB (This prescription has been renewed) Metformin HCl (Metformin HCl) 500 Mg Tablet 1 TAB PO DAILY for 30 Days, #30 TAB (This prescription has been renewed) Tirzepatide (Mounjaro) 5 Mg/0.5 Ml Pen.injctr Discharge Summary: History of present illness: The patient is a 79-year-old male with past medical history of hypertension, diabetes mellitus, CKD, presented to the ED with complaints of abdominal pain. The patient had his lunch at around 1:00 p.m. this afternoon and started having right lower quadrant and umbilical abdominal pain since then. Associated with nausea. Denied vomiting episodes, fevers. Patient also denies cough, chest pain, difficulty breathing, palpitations, diarrhea, constipation, burning micturition. Hospital course: Patient was admitted for right lower quadrant pain, CT showed acute appendicitis. Patient was found to be septic on admission. He was treated with IV hydration, IV Zosyn, and later undergone robotic appendectomy. Also, patient had metabolic encephalopathy, likely due to ongoing infectious process/sepsis. He was disoriented x3, resolved with supportive care. Other comorbidities, including MONTY on CKD, hypertension, diabetes mellitus, hyperlipidemia, and hypothyroidism were managed as well. His UDS was positive for methamphetamine, substance use navigator consulted. Discharge course: Patient is stable, he is able to tolerate oral intake. His bowel movements are present, able to pass gas. No BM yet. Cleared by his surgeon. Was discharged with the following instructions: No heavy lifting for six weeks. Follow up with your primary care doctor in one week, repeat your CBC and CMP in one week. Continue your antibiotics for one week Discharge medications: See above Discharge physical exam: Vital Signs Date Time Temp Pulse Resp B/P (MAP) Pulse Ox O2 Delivery O2 Flow Rate FiO2 07/20/24 10:59 16 07/20/24 10:00 98.3 79 117/44 (68) 94 Room Air 07/19/24 02:00 3.0 07/18/24 22:00 32 Elderly male, alert and oriented, appears to be in acute distress because of abdominal pain Respiratory: Mild diffuse wheezing heard Cardiac: S1-S2 heard, rhythm regular, no gallop/murmur Abdomen: non distended, obese, bowel sounds sluggish, dressing applied on surgical sites; dry and clean, no leakage or discharge Extremities: no clubbing, no pedal edema, no deformities, peripheral pulses - 2+ Skin: warm and dry, no rash, no purpura Neuro: Confused and disoriented *Problems/Diagnosis: (1) Acute appendicitis Total Time Spent on D/C: Up to 30 Minutes Date of Service: July 20, 2024 Billing Provider: ALLYN HARDING MD Common Visit Codes: 75693-MOL/OBS DISCH DAY >30min JASIEL CASAS, SERGIO July 20, 2024 13:42 ALLYN HARDING MD July 20, 2024 19:00
--- NOTE | 2024-07-20 20:12 | PROGRESS NOTE ---
Progress Note ID Providers to CC ~ Progress Note Progress Note: ok for SIRIA Gillespie MD July 20, 2024 20:12
[2024-07-21] MEDS ORDERED: LISI20TA28 PO (07:47)
[2024-07-21] MEDS ORDERED: LORazepam 1 MG tablet PO PRN (22:00)
[2024-07-21] MEDS ORDERED: LORazepam 2 mg/ml vial IV PRN (22:00)
[2024-07-22] MEDS ORDERED: thiamine 100mg tablet PO SCH (08:00)
[2024-07-22] MEDS ORDERED: folic acid 1mg tablet PO SCH (08:00)
== END 2024-07-20 14:39 | disposition home or self-care (01) | DRG 853 ==
LOC: ER 17:39 → ED HOLD 22:10 → ORTHO 4S 07-18 02:05 → SUR 3N 07-19 18:43
PROVIDERS: ADMIT Internal Medicine Pulmonary Disease; ATTEND Family Medicine
PROC: 8E0W4CZ Robotic Assisted Procedure of Trunk Region, Percutaneous Endoscopic Approach (ICD-10-PCS; 2024-07-18)
PROC: BW211ZZ Computerized Tomography (CT Scan) of Abdomen and Pelvis using Low Osmolar Contrast (ICD-10-PCS; 2024-07-18)
PROC: 0DTJ4ZZ Resection of Appendix, Percutaneous Endoscopic Approach (ICD-10-PCS; principal; 2024-07-18 13:41)
DX: A41.9 Sepsis, unspecified organism (principal); G93.41 Metabolic encephalopathy; N17.0 Acute kidney failure with tubular necrosis; E87.20 Acidosis, unspecified; K35.80 Unspecified acute appendicitis; N18.30 Chronic kidney disease, stage 3 unspecified; E11.22 Type 2 diabetes mellitus with diabetic chronic kidney disease; E78.00 Pure hypercholesterolemia, unspecified; E86.0 Dehydration; E11.21 Type 2 diabetes mellitus with diabetic nephropathy; E11.51 Type 2 diabetes mellitus with diabetic peripheral angiopathy without gangrene; I12.9 Hypertensive chronic kidney disease with stage 1 through stage 4 chronic kidney disease, or unspecified chronic kidney disease; I25.10 Atherosclerotic heart disease of native coronary artery without angina pectoris; N14.11 Contrast-induced nephropathy; E03.9 Hypothyroidism, unspecified; F10.10 Alcohol abuse, uncomplicated; Z63.4 Disappearance and death of family member; I25.2 Old myocardial infarction; Z82.49 Family history of ischemic heart disease and other diseases of the circulatory system
CPT/HCPCS: 36415; 71045; 74176; 74177; 80053; 80061; 80305; 80320; 81001; 82150; 82948; 83036; 83605; 83690; 83735; 83880; 84100; 84145; 84443; 84484; 85025; 85610; 87040; 87081; 88304; 93005; 94640; 94760; 96365; 96366; 96375; 97161; 97530; 99291; 99292; A4215; A4314; A4615; A4618; A5200; A6223; A6253; A6258; A6402; A6407; A6446; G0378; J0131; J1100; J1644; J2250; J2270; J2371; J2405; J2470; J2543; J2704; J3010; J3411; J3490; J7030; P9045; Q9963; Q9967